=== PATIENT | female | born 1985 | race Hispanic/Latino ===

== ENCOUNTER 2025-03-20 20:58 | Emergency (ER) | payer OTHER ==
[~2025-03-20] VITALS: Ht 160 cm; Wt 73.4 kg
[2025-03-20 21:35] LABS: BASOPHILS 0.1 % (0.1-1.2); EOSINOPHILS 1.1 % (0.7-5.8); LYMPHOCYTES 27.1 % (19.3-51.7); MCH 28.5 PG (25.6-32.2); MCHC 33.4 g/dL (32.2-35.5); MCV 85.1 fL (79.4-94.8); MONOCYTES 7.7 % (4.7-12.5); NEUTROPHILS 63.8 % (34.0-71.1); RBC 4.71 M/uL (3.93-5.22)
[2025-03-20 21:58] LABS: ABO B; RH POSITIVE
[2025-03-20 22:11] LABS: ALT (SGPT) 26.0 U/L (14-59); AST (SGOT) 16.0 U/L (15-37); GLOMERULAR FILTRATION RATE,EST 114.0 mL/min (>60); PROTEIN, TOTAL 7.6 g/dL (6.4-8.2); UREA NITROGEN 12.0 mg/dL (7-18)
[2025-03-20 23:28] VITALS: BP 121/75
[2025-03-20] MEDS ORDERED: PRENATABS RX T1 EACH PO (23:29)
[2025-03-21] MEDS ORDERED: PRENATABS RX T1 EACH PO (06:32)
== END 2025-03-20 23:29 | disposition home or self-care (01) ==
LOC: ED 20:58
PROVIDERS: Family Medicine
DX: O20.9 Hemorrhage in early pregnancy, unspecified (principal)
CPT/HCPCS: 36415; 76801; 76817; 80053; 84702; 85025; 86900; 86901; 99284-25